=== PATIENT | female | born 1990 | race African-American/Black ===

== ENCOUNTER 2016-09-26 18:55 | Outpatient (CLI) | payer OTHER ==
[~2016-09-26] VITALS: Ht 165.1 cm; Wt 95.7 kg
[2016-09-26 19:41] VITALS: Ht 165.1 cm; Wt 95.7 kg
[2016-09-26 19:42] VITALS: BP 127/59; PULSE 83; RESP 18
[2016-09-26] MEDS ORDERED: PREN1TAB62 PO (19:46)
[2016-09-26 20:59] LABS: ADD UMIC YES; URINE BILIRUBIN (Dip) NEGATIVE (NEGATIVE); URINE BLOOD (Dip) NEGATIVE (NEGATIVE); URINE COLOR LT. YELLOW (YELLOW); URINE GLUCOSE (Dip) NEGATIVE (NEGATIVE); URINE KETONES (Dip) NEGATIVE (NEGATIVE); URINE LEUKOCYTE ESTERASE (Dip) 1+ (NEGATIVE); URINE NITRITE (Dip) NEGATIVE (NEGATIVE); URINE TOTAL PROTEIN (Dip) NEGATIVE (NEGATIVE); URINE UROBILINOGEN (Dip) 0.2 E.U./dL (0.1-1.0)
[2016-09-26 21:07] LABS: SQUAMOUS EPITHELIAL CELL,UR FEW; URINE RBCS NONE SEEN /HPF (0)
[2016-09-26 21:08] LABS: BACTERIA,URINE FEW; TRICHOMONAS,URINE MODERATE
--- NOTE | 2016-09-26 21:55 | RADRPT ---
PROCEDURE: Obstetrical ultrasound. CLINICAL INDICATION: , evaluation. Pelvic pain. Gestational diabetes TECHNIQUE: Transabdominal and transvaginal sonographic images of the pelvis are obtained. COMPARISON: No prior studies are available for comparison. FINDINGS: The cervix is closed with a length of 3.5 cm . Single intrauterine gestation. There is a cephalic presentation. Measurements were made in order to determine age. The results are as follows: BPD = 6.92 cm HC = 23.79 cm AC = 22.60 cm FL = 5.0 cm Heart rate = 146 beats per minute The placenta is posterior; the lower margin is not clearly demonstrated. Ovaries are not visualized. IMPRESSION: Single intrauterine gestation of approximately 26 weeks 6 days by ultrasound criteria. Estimated weight = 999 g; 65 percentile for estimated ultrasound age. RPTAT: AADD .Larry Delaney MD, Date Time Electronically viewed and signed by .Larry Delaney MD, on 09/26/2016 21:54 .B/
[2016-09-26] MEDS ORDERED: TERBUTALINE 1 MG/ML INJ SC ONE (22:30)
[2016-09-26] MEDS ORDERED: metroNIDAZOLE 500 MG TAB PO ONE (22:30)
--- NOTE | 2016-09-26 22:42 | QN ---
Documentation Comment Laborist ANGE pt 26 y.o. A2 with an IUP at 26 weeks with c/o pink d/c since yesterday. Pt reports that her belly gets tight off and on for the last month, especially when the baby is moving a lot. Denies pelvic pressure and denies leaking any fluid. No N/V. PMHx: umbilical hernia just since this and very tender when the baby moves. Pt currently in a substance abuse treatment program. PSHx: C/S x 2 and pt states she does have adhesions inside. NKDA. BP 127/59. T= 97.9. NST: baseline 140 bpm with accels to 16- bpm. No decels. Some small regular UC's , low intensity. Pt aware of them but does not seem to have discomfort related to them. Cervical length 3.5 cm and cervix is closed. EFW 999 grams. U/A 1+ leukocytes, moderate trichomonads noted. A: IUP at 26 weeks. Trichomonas infection. [place] discharge. P: Flagyl 2 grams p.o. x 1. P.O. hydration. If UC's halley may d/c home. If not then Terbutaline 0.25 SQ x 1 and can repeat x 1 prn. TESSY VELAZCO MD Sep 26, 2016 22:42
--- NOTE | 2016-09-27 01:02 | TRIAGE ---
OB Triage Datetime Report Generated by CPN: 09/27/2016 01:02 Datetime: 09/26/2016 23:22 Pain Assessment Pain Scale: 0 Datetime: 09/26/2016 23:01 Stage of : OB Triage Datetime: 09/26/2016 22:00 Labor Evaluation Frequency: 0 Monitor Mode: External Heart Rate FHR Baseline Rate: 145 Monitor Mode: External US FHR Baseline Changes: No Baseline Change Variability: Moderate 6-25 bpm Accelerations: 15X15 Decelerations: None Category: Category I Datetime: 09/26/2016 20:48 Labor Evaluation Frequency: 0 Monitor Mode: External Heart Rate FHR Baseline Rate: 145 FHR Baseline Changes: No Baseline Change Variability: Moderate 6-25 bpm Accelerations: 15X15 Decelerations: None Category: Category I Datetime: 09/26/2016 20:35 Stage of : OB Triage Datetime: 09/26/2016 20:00 Labor Evaluation Frequency: 0 Monitor Mode: External Quality: Mild Pattern: Normal: <= 5 Contractions in 10 Minutes Resting Tone [place]: Relaxed Heart Rate FHR Baseline Rate: 155 Monitor Mode: External US FHR Baseline Changes: No Baseline Change Variability: Moderate 6-25 bpm Accelerations: 15X15 Decelerations: None Category: Category I Datetime: 09/26/2016 19:10 Stage of : OB Triage Arrived By: Wheelchair Arrived From: Home Chief Complaint: C/O VAGINAL DISCHARGE PINK IN COLOR/ HERNIA ABOVE HER BELLY BUTTON DX 1 MTH 8/10 PAIN / CRAMPS SINCE LAST NIGHT 4/10 Rupture of Membranes: Denies Vaginal Bleeding: Scant Vaginal Discharge: Present Recent Sexual Intercouse: Denies Abdominal Trauma: Not Applicable Time Provider Notified: 09/26/2016 19:30 Provider Notified: DR VELAZCO Initial Plan: CALL LALA MEDINA Maternal Assessment Level of Consciousness: Fully Conscious DTR's/Clonus: DTRs 2+; No Clonus Headache: Denies Blurred Vision: No Respiratory Effort: Unlabored; Regular Rhythm; Equal Expansion Breath Sounds, Left: Clear and Equal Breath Sounds, Right: Clear and Equal Nausea/Vomiting: Denies RUQ Epigastric Pain: Denies Lower Extremities Edema: Bilateral Lower Extremities Degree: 1+ Upper Extremities Edema: None Degree: None Facial Edema: None Temperature Route: Oral Fall Risk Assessment History of Falling: (0) No Secondary Diagnosis: (0) No Ambulatory Aid: (0) Bedrest/Nurse Assist IV Therapy: (0) No Gait: (0) Normal/Bedrest/Immobile Mental Status: (0) Oriented to Own Ability Fall Score: 0 Fall Risk Score Definition: No Risk: No action required Monitor Mode: External Monitor Mode: External US Pain Assessment Pain Scale: 4 Pain Presence: Intermittent Pain Type: Cramping Pain Location: Abdomen (Annotations: LOWER)
== END 2016-09-26 23:45 | disposition home or self-care (01) ==
LOC: OBT 18:55 → L-D 18:56 → OBT 23:45
PROVIDERS: ATTEND Obstetrics & Gynecology
DX: O98.312 Other infections with a predominantly sexual mode of transmission complicating pregnancy, second trimester (principal); A59.01 Trichomonal vulvovaginitis; Z3A.26 26 weeks gestation of pregnancy
CPT/HCPCS: 76815; 76817; 81001; 87086; Z7500; Z7610; 81003; G0463

== ENCOUNTER 2016-10-10 19:01 | Outpatient (CLI) | payer OTHER ==
[~2016-10-10] VITALS: Ht 162.6 cm; Wt 97.2 kg
[~2016-10-10 19:01] MED LIST: PREN1TAB62 PO
[2016-10-10 19:13] VITALS: Ht 162.6 cm; Wt 97.2 kg
[2016-10-10 19:14] VITALS: BP 107/51; PULSE 94; RESP 18
--- NOTE | 2016-10-10 20:38 | PN ---
Date/Time of Note Date/Time of Note DATE: 10/10/16 TIME: 20:17 OB Subjective Subjective Subjective 26 yo P2042 @ 28wks2 days presents with vaginal bleeding. She was seen on Sep 26 for the same issue. No ctx or LOF, good FM patient had trichomonas the last time she was here; she has not had sex since; she also had gonorrhea and chlamydia in the beginning of the . OB Objective Objective Objective Abdomen- gravid,n /t SVE- deferred FHT- mod elvin; pos accel; no decel [place]- no ctx Membranes: Intact Accelerations: Accelerations Present Decelerations: No Decelerations OB Assessment/Plan Other Assessment: 26 yo P2042 @ 28wks2 days, w vaginal bleeding, not in PTL Other plan: sono ordered- cervical length, BPP, YAZ blood type ordered- O+ per patient If cervical length unchanged from prior (3.5cm), d/c home w PTL precautions patient requested u/a to check for trichomonas, which she had earlier in the SAMEER VICKERS MD Oct 10, 2016 20:38
--- NOTE | 2016-10-10 21:18 | RADRPT ---
PROCEDURE: US limited OB for cervical length CLINICAL INDICATION: and cramping pain TECHNIQUE: Multiple real-time images were acquired of the patient's maternal abdomen utilizing a curved array transducer. COMPARISON: 09/26/2016 FINDINGS: There is a single live intrauterine fetus positioned cephalic. The placenta is implanted posteriorly and is grade 1. There is no placenta previa or abruptio. The the cervix is closed and measures 3.5 cm in length. IMPRESSION: 1. Live cephalic fetus. 2. Posterior placenta, grade 1, no previa. 3. The cervix is closed and measures 3.5 cm in length. Physician Osmany Date Time Electronically viewed and signed by Physician Osmany on 10/10/2016 21:18 RH/
--- NOTE | 2016-10-10 21:57 | RADRPT ---
PROCEDURE: US OB. CLINICAL INDICATION: induced hypertension TECHNIQUE: Pelvic ultrasound performed for biophysical profile. COMPARISON: 10/10/2016. 09/26/2016 FINDINGS: Single intrauterine gestation present with heart rate at 139 beats per minute. Presentation is ceph alic. Placenta is posterior, grade II. Biophysical profile score is 8/8 (breathing=2, movement=2, tone =2, fluid volume=2). Amniotic fluid volume is within normal limits, with YAZ = 10.9 cm. RPTAT:HJJR IMPRESSION: Biophysical profile score 8/8. Physician Linda Date Time Electronically viewed and signed by Physician Linda on 10/10/2016 21:57 /
[2016-10-10 22:33] LABS: ADD UMIC YES; URINE BILIRUBIN (Dip) NEGATIVE (NEGATIVE); URINE BLOOD (Dip) TRACE (NEGATIVE); URINE COLOR LT. YELLOW (YELLOW); URINE GLUCOSE (Dip) NEGATIVE (NEGATIVE); URINE KETONES (Dip) NEGATIVE (NEGATIVE); URINE LEUKOCYTE ESTERASE (Dip) NEGATIVE (NEGATIVE); URINE NITRITE (Dip) NEGATIVE (NEGATIVE); URINE TOTAL PROTEIN (Dip) NEGATIVE (NEGATIVE); URINE UROBILINOGEN (Dip) 0.2 E.U./dL (0.1-1.0)
[2016-10-10 22:48] LABS: BACTERIA,URINE MODERATE; SQUAMOUS EPITHELIAL CELL,UR MODERATE; URINE RBCS 0-2 /HPF (0)
== END 2016-10-11 00:05 | disposition home or self-care (01) ==
LOC: L-D 19:01 → OBT 19:01
PROVIDERS: ATTEND Obstetrics & Gynecology
DX: O46.93 Antepartum hemorrhage, unspecified, third trimester (principal); R10.9 Unspecified abdominal pain; O13.3 Gestational [pregnancy-induced] hypertension without significant proteinuria, third trimester; Z3A.28 28 weeks gestation of pregnancy
CPT/HCPCS: 59025; 76817; 76818; 81001; 86850; 86900; 86901; Z7500; 81003; G0463

== ENCOUNTER 2016-11-12 11:13 | Outpatient (CLI) | payer OTHER ==
[~2016-11-12] VITALS: Ht 160 cm; Wt 100.1 kg
[2016-11-12 11:18] VITALS: Ht 160 cm; Wt 100.1 kg
[2016-11-12 11:19] VITALS: BP 111/55; PULSE 86; RESP 18
--- NOTE | 2016-11-12 13:31 | RADRPT ---
PROCEDURE: OB ultrasound for biophysical profile CLINICAL INDICATION: Pelvic pressure TECHNIQUE: Multiple sonographic images of the pelvis were obtained. Transabdominal views of the g ravid uterus are available for review. The images were reviewed on a PACS workstation. COMPARISON: Biophysical profile dated 10/10/2016 FINDINGS: breathing movement = 2/2 tone = 2/2 motion = 2/2 YAZ = 2/2 YAZ = 11.1 cm Single live intrauterine with cardiac activity of 144 bpm. position is breech . The placenta is posterior. The cervix is closed with a length of 3.1 cm. IMPRESSION: 1. Single live intrauterine gestation. 2. Biophysical profile = 8/8. 3. YAZ = 11.1 cm. 4. Breech presentation. RPTAT: HH .Zhanna Bustamante MD, Date Time Electronically viewed and signed by .Zhanna Bustamante MD, on 11/12/2016 13:30 .G/
--- NOTE | 2016-11-12 13:40 | RADRPT ---
PROCEDURE: US OB. CLINICAL INDICATION: Size and dates , vaginal pressure TECHNIQUE: Multiple sonographic images of the pelvis and gravid uterus were obtained. The images were reviewed on a PACS workstation. COMPARISON: 10/10/2016 FINDINGS: There is a single viable intrauterine gestation. Cardiac activity is present with 156 beats per min shirley. There is a breech presentation. The placenta is posterior. There is no evidence for an abruption or placenta previa. There is a normal amount of amniotic fluid with an YAZ = 11.1 cm. Measurements were made in order to determine age. The results are as follows: BPD =7.9 cm HC =30.2 cm AC =31.1 cm FL =6.3 cm Estimated gestational age of approximately 33 weeks and 2 days based on ultrasound measurements. Clinical age: 33 weeks and 0 days. The estimated date of delivery is 12/29/16, based on ultrasound measurements. The EFW = 2297 g, 68.8%, based on LMP age. RPTAT: AA IMPRESSION: Single viable intrauterine gestation of approximately 33 weeks and 2 days based on ultrasound measu rements. .Feliberto Capps MD, Date Time Electronically viewed and signed by .Feliberto Capps MD, on 11/12/2016 13:39 .S/
--- NOTE | 2016-11-12 15:08 | CONS ---
Date/Time of Note Date/Time of Note DATE: 11/12/16 TIME: 15:00 Consultation Date/Type/Reason Admit Date/Time November 12, 2069 OB triage consult Reason for Consultation This patient is a 26 years old 7 para 2 3 living 2 who had 2 previous section . 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 On physical examination she is normal well-developed well-nourished lady with normal vital signs blood pressure 111/55 pulse rate 86 respiration 18 temperature 98 on examination of the abdomen she has very rare contractions heart tones were normal with fairly good variability and acceleration no decelerations On ultrasound study her biophysical profile was 8 of 8 heart tones 144 bpm the placenta was posterior posterior cervix was 3.1 cm in her YAZ was reported at 11.1 cm estimated weight was 2297 g which makes it 68.8 based percentile. Constitutional: No chills, No diaphoresis, No disoriented, No febrile, No improved, No no complaints, No other, No poor po, No requiring IVF, No requiring O2 Eyes: No discharge, No no complaints, No other, No pain, No redness, No visual change ENT: No bleeding, No congestion, No discharge, No dysphagia, No no complaints, No other, No pain, No sore throat Respiratory: No cough, No no complaints, No other, No pain, No pleuritic pain, No shortness of breath, No sputum, No wheezing Cardiovascular: No chest pain, No edema, No lightheadedness, No no complaints, No orthopenea, No other, No palpitations, No paroxysmal nocturnal dyspnea Gastrointestinal: other (Cervical length was 3.1 no bleeding no excessive vaginal discharge), No blood, No constipation, No decreased appetite, No diarrhea, No flatus, No nausea, No no complaints, No pain, No passing stool, No vomiting Genitourinary: No bleeding, No discharge, No dysuria, No flank pain, No hematuria, No no complaints, No other Musculoskeletal: other (Slight low back pain since last night), No back pain, No bone/joint pain, No neck pain, No no complaints, No restricted range of motion, No swelling Skin: No bruising, No erythema, No laceration, No no complaints, No other, No pruritis, No rash, No skin lesions Neurologic: No confusion, No dizziness, No focal-weakness, No headache, No no complaints, No other, No seizure, No syncope Endocrine: No dry skin, No no complaints, No other, No polydypsia, No polyuria , No temp intolerance Lymphatic: No adenopathy, No lymphadema, No no complaints, No other, No tender nodes Additional Comments With these finding patient was sent home to be followed in the clinic Social History Smoking Status: Never smoker Exam/Review of Systems Vital Signs Vitals Vital Signs Date Time Temp Pulse Resp B/P Pulse Ox O2 Delivery O2 Flow Rate FiO2 11/12/16 11:19 98.0 86 18 111/55 Room Air NAT VILLEDA MD Nov 12, 2016 15:08
== END 2016-11-12 15:08 | disposition home or self-care (01) ==
LOC: L-D 11:13 → OBT 11:13
PROVIDERS: ATTEND Obstetrics & Gynecology
DX: O26.893 Other specified pregnancy related conditions, third trimester (principal); R10.30 Lower abdominal pain, unspecified; M54.9 Dorsalgia, unspecified; O24.410 Gestational diabetes mellitus in pregnancy, diet controlled; Z3A.33 33 weeks gestation of pregnancy
CPT/HCPCS: 76815; 76817; 76818; Z7500; G0463

== ENCOUNTER 2016-12-23 05:49 | Inpatient (IN) | payer OTHER ==
[~2016-12-23] VITALS: Ht 158.8 cm; Wt 101.8 kg
[2016-12-23] MEDS ORDERED: CARBOPROST 250 MCG INJ IM PRN ×2 (06:00→14:30)
[2016-12-23] MEDS ORDERED: OXYTOCIN 30 UNITS/LR 500 ML IV PRN ×2 (06:00→14:30)
[2016-12-23] MEDS ORDERED: MISOPROSTOL 200 MCG TAB PR PRN ×2 (06:00→14:30)
[2016-12-23] MEDS ORDERED: METHYLERGONOVINE 0.2 MG INJ IM PRN ×2 (06:00→14:30)
[2016-12-23 07:22] VITALS: Ht 158.8 cm; Wt 101.8 kg
[2016-12-23 07:51] LABS: ADD SCAN DIFF NO
[2016-12-23 07:55] LABS: BASOPHIL # 0.1 10^3/ul (0.0-0.1); BASOPHILS % 0.7 % (0.0-2.0); EOSINOPHILS # 0.2 10^3/ul (0.0-0.5); EOSINOPHILS % 2.5 % (0.0-7.0); HEMATOCRIT 36.6 % (37.0-47.0); HEMOGLOBIN 12.5 g/dl (12.0-16.0); LYMPHOCYTES # 2.4 10^3/ul (0.8-2.9); LYMPHOCYTES % 26.7 % (15.0-51.0); MEAN CORPUSCULAR HEMOGLOBIN 29.8 pg (29.0-33.0); MEAN CORPUSCULAR HGB CONC 34.2 g/dl (32.0-37.0); MEAN CORPUSCULAR VOLUME 87.4 fl (82.0-101.0); MEAN PLATELET VOLUME 10.2 fl (7.4-10.4); MONOCYTE # 0.8 10^3/ul (0.3-0.9); MONOCYTES % 8.3 % (0.0-11.0); NEUTROPHIL # 5.5 10^3/ul (1.6-7.5); NEUTROPHILS % 60.4 % (39.0-77.0); PLATELET COUNT 263 10^3/UL (140-415); RED BLOOD COUNT 4.19 10^6/ul (4.20-5.40); RED CELL DISTRIBUTION WIDTH 13.3 % (11.5-14.5); WHITE BLOOD COUNT 9.1 10^3/ul (4.8-10.8)
[2016-12-23] MEDS: LACTATED RINGER'S 1,000 ML IV SCH ×2 (08:00→13:54)
[2016-12-23 08:09] LABS: INR 0.94; PARTIAL THROMBOPLASTIN TIME 27.8 Sec (25.0-35.0); PROTIME 12.6 Sec (12.2-14.2)
[2016-12-23 08:11] LABS: GLUCOSE 76 mg/dl (70-220)
[2016-12-23] MEDS ORDERED: OXYTOCIN 10 UNIT INJ ONE (08:17)
[2016-12-23] MEDS ORDERED: PHENYLephrine (100 MCG/ML) 5ML SYG ONE (08:17)
[2016-12-23] MEDS ORDERED: METOCLOPRAMIDE 10 MG INJ ONE (08:17)
[2016-12-23] MEDS ORDERED: morphine SULFATE/PF (10 MG/10 ML) INJ ONE (08:17)
[2016-12-23] MEDS ORDERED: FENTAnyl 50 MCG/ML VIAL ONE (08:17)
[2016-12-23] MEDS: CEFAZOLIN 2 GM/50 ML (PMX) 50 ML IV SCH ×2 (08:20→09:31)
[2016-12-23] MEDS ORDERED: ONDANSETRON 4 MG INJ ONE (09:27)
--- NOTE | 2016-12-23 10:03 | HP ---
Date/Time of Note Date/Time of Note DATE: 12/23/16 TIME: 09:55 OB - History Hx of Present Free Text/Dictation This is a 26 years old female 7 para SAB 3 IAB 1 admitted to [facility] at 39 weeks just with a history of 2 previous section and requests for bilateral tubal ligation at the time of her section patient has been counseled regarding the failure rate of tubal ligation increased risk of ectopic future failure to conceive she would like to proceed with tubal ligation at the time of her section also complication of the surgery including bowel bladder injury infection hemorrhage and hematoma has been discussed with the patient and she would like to proceed with a and bilateral tubal ligation Estimated Due Date: December 30, 2016 : 7 Para: 2 Spontaneous : 3 Therapeutic : 1 Care: Good Care Ultrasounds: Normal mid trimester US Medical Complications: None Past Family/Social History * Past Medical, Surgical, Family and Obstetric Histories reviewed from chart. Rubella: immune RPR/VDRL: Negative GBS Status: Negative HBsAG: Negative OB Admission Exam Physical Exam HEENT: WNL Heart: Rhythm Normal Abdomen: WNL Extremities: Normal Reflexes: Normal Cervical Dilatation: None Effacement: 0% Station: Other (Breech presented) Membranes: Intact Heart Rate: 130's Accelerations: Accelerations Present Decelerations: No Decelerations Contractions on Admission: 6-10 Minutes Apart Intensity: Mild Last 72 hours Lab Results CBC & BMP 12/23/16 06:25 MARVIN BRAMBILA MD December 23, 2016 10:03
[2016-12-23] MEDS: OXYTOCIN 30 UNITS/LR 500 ML IV SCH ×4 (10:18→21:33)
--- NOTE | 2016-12-23 10:46 | OPR ---
DATE OF OPERATION: 12/23/2016 PREOPERATIVE DIAGNOSES: 1. Intrauterine at 39 weeks. 2. History of two previous sections. 3. Request for voluntary sterilization, bilateral tubal ligation at the time of her sectio n. POSTOPERATIVE DIAGNOSES: 1. Intrauterine at 39 weeks. 2. History of 2 previous sections. 3. Request for voluntary sterilization, bilateral tubal ligation at the time of her sectio n. PERFORMED: Marvin Tinajero MD TECHNICAL PUBLICATIONS WRITER: [place] MD ANESTHESIA: Spinal. ANESTHESIOLOGIST: Carl Ladd MD FINDINGS: Live baby girl with the 8 and 9. Baby weighed at 4160 grams. DETAILS OF THE PROCEDURE: Under satisfactory spinal anesthesia, the patient was prepped and draped and placed in supine position. Pfannenstiel incision was made. Old scar was removed. Incision car ried through the subcutaneous tissue. Bleeders brought under control with electrocautery. Fascia i ncised to the length of the incision. Rectus muscle divided in midline. Peritoneum exposed, entere d through a transverse incision. Exploration of abdomen: Gravid uterus at term, normal appearing tu bes and ovaries. Bladder flap was developed. Transverse incision was made in the lower segment of the uterus. Amniotic sac ruptured. Clear amniotic fluid noted. Live baby girl was delivered from [place] breech presentation. Shoulder delivered without any difficulty. Head delivered with the Maur iceau maneuver. Nasal oropharyngeal suction was performed. Cord clamped after the stop pulsation. Baby handed to the team for immediate attention. The patient received 20 units of Pitoci n. Placenta delivered manually intact. Uterine cavity cleaned with wet sponge and drainage establi shed. Uterus closed in 2 layers using Monocryl #1 in continuous fashion. Bilateral tubal ligation performed by identifying the ampullar and the fimbria of the right fallopian tube which was grasped by a Prema. A loop was made and suture material used #0 plain catgut was reinforced with the same suture material. The portion of the tube was excised. The cut end of the tube was cauterized and the specimen submitted to pathology. The same procedure performed for the opposite side. No bleedi ng was noted. Second sponge, needle and instrument reported to be correct. Abdominal peritoneum cl osed with 2-0 chromic catgut continuously. Rectus muscle approximated with few interrupted 2-0 manager ed erich catgut. Fascia closed with #1 PDS in a continuous fashion. Subcutaneous tissue irrigated with warm saline and approximated with interrupted 2-0 chromic catgut. Skin closed with roger. Estima fawad blood loss 600 mL. Urine bag contained 200 mL of clear urine. Patient tolerated procedure well , transferred to recovery room in a good condition. Dictated By: MARVIN TINAJERO MD HF/NTS Conf#: [id number] DID#: [id number] CC: SOUTH CASANOVA MD;*EndCC*
[2016-12-23] MEDS ORDERED: DIPHENHYDRAMINE 50 MG INJ IV PRN (11:30)
[2016-12-23] MEDS ORDERED: ONDANSETRON 4 MG INJ IV PRN (11:30)
[2016-12-23] MEDS ORDERED: NALOXONE (0.4 MG/ML) INJ IV PRN (11:30)
[2016-12-23] MEDS ORDERED: morphine 2 MG INJ IV PRN (11:30)
[2016-12-23] MEDS: KETOROLAC 30 MG INJ IV PRN (11:33)
[2016-12-23 12:12] LABS: BARBITURATES Negative (NEGATIVE); BENZODIAZEPINES Negative (NEGATIVE); CANNABINOIDS Negative (NEGATIVE); COCAINE Negative (NEGATIVE); OPIATES Negative (NEGATIVE)
[2016-12-23 13:55] VITALS: BP 133/68; PULSE 65; RESP 17
[2016-12-23 14:10] VITALS: BP 129/75; PULSE 73; RESP 18
[2016-12-23 14:25] VITALS: BP 129/75; PULSE 73; RESP 17
[2016-12-23] MEDS ORDERED: ACETAMINOPHEN/CODEINE #3 TAB PO PRN ×2 (14:30)
[2016-12-23] MEDS ORDERED: OXYCODONE/ACETAMINOPHEN (5/325) TAB PO PRN (14:30)
[2016-12-23] MEDS ORDERED: CEFAZOLIN 1 GM/50 ML (PMX) 50 ML IVPB SCH (14:30)
[2016-12-23] MEDS ORDERED: LANOLIN 7 GM TUBE TOP PRN (14:30)
[2016-12-23 14:55] VITALS: BP 130/68; PULSE 78; RESP 16
[2016-12-23 20:15] VITALS: BP 124/60; PULSE 77; RESP 19
[2016-12-23] MEDS: SENNA/DOCUSATE NA (8.6MG/50MG) TAB PO SCH (21:00)
[2016-12-24] VITALS: BP 114/58; PULSE 85; RESP 19
[2016-12-24] MEDS: KETOROLAC 30 MG INJ IV PRN ×2 (01:36→07:08)
[2016-12-24] MEDS: LACTATED RINGER'S 1,000 ML IV SCH ×3 (01:36→13:54)
[2016-12-24 04:00] VITALS: BP 101/51; PULSE 75; RESP 19
[2016-12-24 08:20] VITALS: BP 102/55; PULSE 73; RESP 17
[2016-12-24 08:28] LABS: ADD SCAN DIFF NO
[2016-12-24 08:53] LABS: BASOPHIL # 0.1 10^3/ul (0.0-0.1); BASOPHILS % 0.4 % (0.0-2.0); EOSINOPHILS # 0.3 10^3/ul (0.0-0.5); EOSINOPHILS % 2.1 % (0.0-7.0); HEMATOCRIT 34.8 % (37.0-47.0); HEMOGLOBIN 11.2 g/dl (12.0-16.0); LYMPHOCYTES # 1.9 10^3/ul (0.8-2.9); LYMPHOCYTES % 15.5 % (15.0-51.0); MEAN CORPUSCULAR HGB CONC 32.2 g/dl (32.0-37.0); MEAN CORPUSCULAR VOLUME 90.2 fl (82.0-101.0); MEAN PLATELET VOLUME 10.2 fl (7.4-10.4); MONOCYTE # 0.9 10^3/ul (0.3-0.9); MONOCYTES % 7.1 % (0.0-11.0); NEUTROPHILS % 74.5 % (39.0-77.0); PLATELET COUNT 255 10^3/UL (140-415); RED BLOOD COUNT 3.86 10^6/ul (4.20-5.40); RED CELL DISTRIBUTION WIDTH 13.5 % (11.5-14.5); WHITE BLOOD COUNT 12.1 10^3/ul (4.8-10.8)
[2016-12-24] MEDS: SENNA/DOCUSATE NA (8.6MG/50MG) TAB PO SCH ×2 (09:06→21:13)
[2016-12-24] MEDS: OXYCODONE/ACETAMINOPHEN (5/325) TAB PO PRN ×2 (10:14→16:17)
[2016-12-24 16:00] VITALS: BP 129/66; PULSE 101; RESP 18
--- NOTE | 2016-12-24 16:26 | PN ---
Date/Time of Note Date/Time of Note DATE: 12/24/16 TIME: 16:25 OB Subjective Subjective Subjective December 24, 2016 Post C Section day 1 Patient is doing well, Ambulatory She is afebrile Abdomen is soft , Fundus is firm Moderate amount of lochia Breasts are soft, Nipples are intact No calf tenderness. Incision healing well. Breast feeding the new born. Laboratory Tests Test 12/24/16 07:20 White Blood Count 12.110^3/ul Red Blood Count 3.8610^6/ul Hemoglobin 11.2g/dl Hematocrit 34.8% Mean Corpuscular Volume 90.2fl Mean Corpuscular Hemoglobin 29.0pg Mean Corpuscular Hemoglobin Concent 32.2g/dl Red Cell Distribution Width 13.5% Platelet Count 22350^3/UL Mean Platelet Volume 10.2fl Neutrophils % 74.5% Lymphocytes % 15.5% Monocytes % 7.1% Eosinophils % 2.1% Basophils % 0.4% Nucleated Red Blood Cells % 0.0/100WBC Neutrophils # 9.010^3/ul Lymphocytes # 1.910^3/ul Monocytes # 0.910^3/ul Eosinophils # 0.310^3/ul Basophils # 0.110^3/ul Nucleated Red Blood Cells # 0.010^3/ul Current Medications Medications (Trade) Dose Ordered Sig/Laure Route PRN Reason Start Time Stop Time Status Last Admin Dose Admin Lactated Ringer's 1,000 ml @ 125 mls/hr Q8H IV 12/23/16 05:54 12/24/16 15:35 DC 12/24/16 01:36 Cefazolin Sodium/ Dextrose 50 ml @ 100 mls/hr ONCE IV 12/23/16 06:00 12/23/16 14:19 DC 12/23/16 08:20 Oxytocin/Lactated Ringer's 500 ml @ 125 mls/hr ONCE IV 12/23/16 06:00 12/24/16 15:35 DC 12/23/16 12:41 Oxytocin/Lactated Ringer's 500 ml @ 0 mls/hr ONCE PRN IV For Hemorrhage Management 12/23/16 06:00 12/23/16 14:19 DC Methylergonovine Maleate (Methergine) 0.2 mg ONCE PRN IM VAGINAL BLEEDING 12/23/16 06:00 Carboprost Tromethamine (Hemabate) 250 mcg ONCE PRN IM VAGINAL BLEEDING 12/23/16 06:00 Misoprostol (Cytotec) 1,000 mcg ONCE PRN MD VAGINAL BLEEDING 12/23/16 06:00 Morphine Sulfate (Duramorph) 10 mg STK-MED ONCE .ROUTE 12/23/16 08:17 12/23/16 08:18 DC Fentanyl (Sublimaze) 100 mcg STK-MED ONCE .ROUTE 12/23/16 08:12/23/16 08:18 DC Phenylephrine HCl (Sukhjinder-Synephrine Inj Syg) 500 mcg STK-MED ONCE .ROUTE 12/23/16 08:17 12/23/16 08:18 DC Metoclopramide HCl (Reglan) 10 mg STK-MED ONCE .ROUTE 12/23/16 08:17 12/23/16 08:18 DC Oxytocin (Oxytocin) 10 units STK-MED ONCE .ROUTE 12/23/16 08:17 12/23/16 08:18 DC Ondansetron HCl (Zofran Inj) 4 mg STK-MED ONCE .ROUTE 12/23/16 09:27 12/23/16 09:28 DC Naloxone HCl (Narcan) 0.1 mg Q2M PRN IV FOR RESP RATE 8 OR LESS 12/23/16 11:30 12/24/16 11:29 DC Ketorolac Tromethamine (Toradol) 30 mg Q6H PRN IV PAIN 12/23/16 11:30 12/24/16 11:29 DC 12/24/16 07:08 Morphine Sulfate (morphine) 2 mg Q3H PRN IV PAIN LEVEL 1-5 12/23/16 11:30 12/24/16 11:29 DC Diphenhydramine HCl (Benadryl) 25 mg Q6H PRN IV ITCHING 12/23/16 11:30 12/24/16 11:29 DC Ondansetron HCl (Zofran Inj) 4 mg Q6H PRN IV NAUSEA AND/OR VOMITING 12/23/16 11:30 12/24/16 11:29 DC Acetaminophen/ Codeine Phosphate (Tylenol No.3) 1 tab Q4H PRN PO PAIN LEVEL 4-6 12/23/16 14:30 Acetaminophen/ Codeine Phosphate (Tylenol No.3) 2 tab Q4H PRN PO PAIN LEVEL 7-10 12/23/16 14:30 Oxycodone/ Acetaminophen (Percocet (5/ 325)) 1 tab Q4H PRN PO PAIN LEVEL 4-6 12/23/16 14:30 Oxycodone/ Acetaminophen (Percocet (5/ 325)) 2 tab Q4H PRN PO PAIN LEVEL 7-10 12/23/16 14:30 12/24/16 16:17 Ibuprofen (Motrin) 600 mg Q6 PO 12/24/16 18:00 Simethicone (Mylicon) 160 mg Q8H PRN PO DISTENSION/GAS/BLOATING 12/23/16 14:30 Senna/Docusate Sodium (Senokot-S) 1 tab BID PO 12/23/16 21:00 12/24/16 09:06 Lanolin (Juh-Y-Gbupef) 1 applic BEDSIDE MEDICATION PRN TOP BEDSIDE FOR FELICITA TO NIPPLES 12/23/16 14:30 Diphtheria/ Tetanus/Acell Pertussis 0.5 ml 0.5 ml ONCE ONCE IM* 12/26/16 09:00 12/26/16 09:01 Oxytocin/Lactated Ringer's 500 ml @ 0 mls/hr ONCE PRN IV For Hemorrhage Management 12/23/16 14:30 Methylergonovine Maleate (Methergine) 0.2 mg ONCE PRN IM VAGINAL BLEEDING 12/23/16 14:30 Carboprost Tromethamine (Hemabate) 250 mcg ONCE PRN IM VAGINAL BLEEDING 12/23/16 14:30 Misoprostol 1000 mcg 1,000 mcg ONCE PRN MD VAGINAL BLEEDING 12/23/16 14:30 Cefazolin Sodium 50 ml @ 100 mls/hr ONCE IVPB 12/23/16 14:30 12/23/16 14:59 DC 12/23/16 16:02 Oxytocin/Lactated Ringer's 500 ml @ 125 mls/hr Q4H IV 12/23/16 14:16 12/24/16 06:57 DC 12/23/16 21:33 NAT VILLEDA MD December 24, 2016 16:26
[2016-12-24] MEDS: IBUPROFEN 600 MG TAB PO SCH ×2 (17:55→23:30)
[2016-12-24 20:00] VITALS: BP 132/57; PULSE 87; RESP 20
[2016-12-25 04:00] VITALS: BP 121/67; PULSE 86; RESP 18
[2016-12-25] MEDS: OXYCODONE/ACETAMINOPHEN (5/325) TAB PO PRN ×3 (05:27→18:16)
[2016-12-25] MEDS: IBUPROFEN 600 MG TAB PO SCH ×4 (06:00→23:34)
[2016-12-25 07:30] VITALS: BP 118/66; PULSE 75; RESP 19
[2016-12-25] MEDS: SENNA/DOCUSATE NA (8.6MG/50MG) TAB PO SCH ×2 (08:50→21:22)
--- NOTE | 2016-12-25 09:58 | PN ---
Date/Time of Note Date/Time of Note DATE: 12/25/16 TIME: 09:57 OB Subjective Subjective Subjective Post date Abdomen soft vitals stable incision dry bowel sounds present uterus firm no bowel movement enema recommended OB Assessment/Plan Plan: Expectant Management MARVIN BRAMBILA MD December 25, 2016 09:58
[2016-12-25] MEDS ORDERED: NA PHOSPHATE/BIPHOS 133 ML ENEMA PR ONE (10:00)
[2016-12-25 15:54] VITALS: BP 117/56; PULSE 79; RESP 19
[2016-12-25 19:45] VITALS: BP 110/67; PULSE 70; RESP 18
[2016-12-26 04:03] VITALS: BP 107/54; PULSE 67; RESP 18
[2016-12-26] MEDS: IBUPROFEN 600 MG TAB PO SCH ×2 (05:48→11:40)
[2016-12-26 07:30] VITALS: BP 117/65; PULSE 71; RESP 19
[2016-12-26] MEDS: SENNA/DOCUSATE NA (8.6MG/50MG) TAB PO SCH (08:57)
[2016-12-26] MEDS ORDERED: DIPHTH/TET/ACEL PERTUSS (ADULT) 0.5 ML VIAL IM* ONE (09:00)
== END 2016-12-26 15:50 | disposition home or self-care (01) | DRG 766 ==
LOC: L-D 05:49 → PP1 13:49
PROVIDERS: ADMIT Obstetrics & Gynecology; ATTEND Obstetrics & Gynecology
PROC: 0UB70ZZ Excision of Bilateral Fallopian Tubes, Open Approach (ICD-10-PCS; 2016-12-23)
PROC: 10D00Z1 Extraction of Products of Conception, Low, Open Approach (ICD-10-PCS; principal; 2016-12-23 07:30)
DX: O34.211 Maternal care for low transverse scar from previous cesarean delivery (principal); Z30.2 Encounter for sterilization; Z3A.39 39 weeks gestation of pregnancy; Z37.0 Single live birth
CPT/HCPCS: 80307; 82947; 82962; 85025; 85610; 85730; 86592; 86850; 86900; 86901; 87340; 88302; 90715; 94760; 99464; J0690; J1885; J2274; J2370; J2405; J2590; J2765; J3010; J7120